=== PATIENT | male | born 1945 | race Caucasian/White ===

== ENCOUNTER 2018-07-29 10:10 | Inpatient (IN) ==
[2018-07-29] MEDS ORDERED: 0.9 % SODIUM CHLORIDE 1,000 ML IV ONE (10:18)
[2018-07-29 11:00] LABS: Mean Cell Volume 92.1 fL (80.0-100.0); Mean Corpuscular HGB Conc 33.5 g/dL (31.0-36.0); Mean Corpuscular Hemoglobin 30.9 pg (26.0-34.0); Platelet Count 218 K/mcL (140-440); RBC 4.05 M/mcL (4.50-5.90)
--- NOTE | 2018-07-29 11:03 | Emergency Department Note ---
Weakness HPI - General Chief complaint: Weakness Stated complaint: weakness, lower leg swelling Time Seen by Provider: 07/29/18 10:18 Source: patient, EMS Mode of arrival: EMS Limitations: no limitations - History of Present Illness HPI Narrative: 72-year-old male presents with significant pedal edema and pain to the feet bilaterally. States he can hardly walk or use his legs because his feet are so tender. Onset a week or 2 ago. Much worse over the last couple days. The right seems to be worse than the left although they are both painful and swollen. The right seems to be worse and red. Denies fever or chills at home. No nausea, vomiting, or diarrhea. No shortness of breath or palpitations. No chest pain. No cough or cold symptoms. Has never had anything like this previously. States he is not on any diuretics. States he just started seeing a new doctor at the [facility] and his last appointment was about 3 weeks ago. He did not have this problem at the time. Associated symptoms: Denies: chest pain, confusion, diaphoresis, fever/chills, loss of appetite, nausea/vomiting, shortness of breath, syncope - Related Data Home Medications Medication Instructions Recorded Confirmed Aspirin [Aspirin EC] 81 mg PO DAILY 07/29/18 07/29/18 Atorvastatin [Lipitor] 20 mg PO HS 07/29/18 07/29/18 Chlorthalidone [Hygroton] 12.5 mg PO DAILY 07/29/18 07/29/18 Lisinopril [Zestril] 20 mg PO DAILY 07/29/18 07/29/18 Omeprazole [PriLOSEC] 20 mg PO ACB 07/29/18 07/29/18 Tamsulosin [Flomax] 0.4 mg PO HS 07/29/18 07/29/18 Allergies Allergy/AdvReac Type Severity Reaction Status Date / Time No Known Drug Allergies Allergy Verified 07/29/18 10:13 Review of Systems All systems ED: reviewed and negative except as stated. Past Medical History - Past Medical History [facility] Narrative: Patient is extremely poor historian. States of his was here she can give us information but he cannot remember his past medical history and surgeries. However patient originally told me he is not on any diuretics but according to the med list he has been on a thiazide type diuretic. Medical history: Reports: GERD, hyperlipidemia, hypertension, other (prostate cancer 2018, fatty growth left arm) Surgical history ED: Reports: herniorrhaphy, orthopedic, other (low back surgeries, left ankle surgeries) - Social History smoking status: Never smoker Alcohol use: Reports: None Drug use: Reports: none Physical Exam Limitations: no limitations General appearance: alert, in no apparent distress Head: atraumatic, normocephalic, normal inspection Eye: Present: normal appearance. Absent: conjunctival injection ENT: mucous membranes moist Chest: Present: symmetric chest wall rise Respiratory: Present: normal lung sounds bilaterally. Absent: respiratory distress, rales/crackles, accessory muscle use Cardiovascular: Present: regular rate, normal heart sounds Extremities: Present: normal capillary refill. Absent: normal inspection (Feet with 2+ pedal edema bilaterally. The right is red and warm. The left is slightly warm but there is no redness. Diffuse tenderness throughout the right and left ankle and foot bilaterally. Sensation intact.) Neurological: Present: alert, oriented X3 Psychiatric: Present: normal affect, normal mood Skin: Present: warm, dry, intact, normal color Course Course Narrative: During the course of his visit here patient was hallucinating, thinking that he was flying. states this is unusual for him. At 1250 I did speak with the hospitalist, Dr. Shannon who agrees to accept the patient. Vital Signs Temperature 100.3 F H 07/29/18 10:10 Pulse Rate 100 H 07/29/18 10:10 Blood Pressure 101/78 07/29/18 10:10 Pulse Oximetry (%) 98 07/29/18 10:10 Temperature 100.8 F H 07/29/18 12:22 Pulse Rate 92 H 07/29/18 12:20 Respiratory Rate 20 07/29/18 12:20 Blood Pressure 114/67 07/29/18 12:20 Pulse Oximetry (%) 94 07/29/18 12:20 Weakness - Lab Data Lab results reviewed: Yes I reviewed the patient's lab results. Result diagrams: 07/29/18 10:27 07/29/18 10:27 Lab Results 07/29/18 07/29/18 07/29/18 Range/Units 10:19 10:19 10:27 WBC 12.2 H (4.5-11.0) K/mcL RBC 4.05 L (4.50-5.90) M/mcL Hgb 12.5 L (13.5-16.5) g/dL Hct 37.2 L (41.0-55.0) % MCV 92.1 (80.0-100.0) fL MCH 30.9 (26.0-34.0) pg MCHC 33.5 (31.0-36.0) g/dL RDW 13.0 (11.5-14.5) % Plt Count 218 (140-440) K/mcL MPV 8.6 (7.4-10.4) fL Total Counted 100 Seg Neutrophils % 75 (38-78) % Band Neutrophils % Not Reportable Lymphocytes % 15 (15-49) % Monocytes % (Manual) 9 (1-12) % Eosinophils % (Manual) 1 (0-7) % Platelet Estimate Normal (NORMAL) RBC Morphology Normal (NORMAL) ESR 87 H (0-15) mm/hr VBG Lactic Acid (0.5-2.0) mmol/L Sodium (133-145) mmol/L Potassium (3.3-5.1) mmol/L Chloride (96-108) mmol/L Carbon Dioxide (22-30) mmol/L Anion Gap (8-16) BUN (8-23) mg/dl Creatinine (0.7-1.2) mg/dl GFR Calculation Glucose (70-105) mg/dL Uric Acid 8.5 H (2.5-8.0) mg/dL Calcium (8.6-10.4) mg/dl Total Bilirubin (0.0-1.0) mg/dL AST (0-37) U/l ALT (0-40) U/l Alkaline Phosphatase (39-117) U/L C-Reactive Protein 17.6 H (0.0-0.8) mg/dl NT-Pro-B Natriuret Pep (0-125) pg/ml Total Protein (5.9-8.4) gm/dL Albumin (3.2-5.2) gm/dL Globulin (2.2-3.7) gm/dL Albumin/Globulin Ratio (1.0-2.3) 07/29/18 07/29/18 07/29/18 Range/Units 10:27 10:27 10:27 WBC (4.5-11.0) K/mcL RBC (4.50-5.90) M/mcL Hgb (13.5-16.5) g/dL Hct (41.0-55.0) % MCV (80.0-100.0) fL MCH (26.0-34.0) pg MCHC (31.0-36.0) g/dL RDW (11.5-14.5) % Plt Count (140-440) K/mcL MPV (7.4-10.4) fL Total Counted Seg Neutrophils % (38-78) % Band Neutrophils % Lymphocytes % (15-49) % Monocytes % (Manual) (1-12) % Eosinophils % (Manual) (0-7) % Platelet Estimate (NORMAL) RBC Morphology (NORMAL) ESR (0-15) mm/hr VBG Lactic Acid 1.1 (0.5-2.0) mmol/L Sodium 138 (133-145) mmol/L Potassium 3.9 (3.3-5.1) mmol/L Chloride 99 (96-108) mmol/L Carbon Dioxide 25 (22-30) mmol/L Anion Gap 14.0 (8-16) BUN 29 H (8-23) mg/dl Creatinine 2.0 H (0.7-1.2) mg/dl GFR Calculation 33 Glucose 124 H (70-105) mg/dL Uric Acid (2.5-8.0) mg/dL Calcium 9.0 (8.6-10.4) mg/dl Total Bilirubin 0.5 (0.0-1.0) mg/dL AST 9 (0-37) U/l ALT 13 (0-40) U/l Alkaline Phosphatase 89 (39-117) U/L C-Reactive Protein (0.0-0.8) mg/dl NT-Pro-B Natriuret Pep 439.1 H (0-125) pg/ml Total Protein 7.3 (5.9-8.4) gm/dL Albumin 3.5 (3.2-5.2) gm/dL Globulin 3.8 H (2.2-3.7) gm/dL Albumin/Globulin Ratio 0.9 L (1.0-2.3) - Radiology Data Radiology results reviewed: Yes I reviewed the patient's radiology results. Disposition Pt seen by CORN [facility]ILLER/PA only: No Clinical Impression: Cellulitis, Pedal edema, Foot pain, bilateral Disposition: Xfer As Inpt ([facility]) Condition: Fair Instructions: Cellulitis (ED) Referrals: Chencho Milner ARNP [Primary Care Provider] - Time of Disposition: 12:55
[2018-07-29 11:24] LABS: Eosinophils % (Manual) 1 % (0-7); Lymphocytes % 15 % (15-49); Monocytes % (Manual) 9 % (1-12); Platelet Estimate NORMAL (NORMAL); RBC Morphology NORMAL (NORMAL); Segmented Neutrophils % 75 % (38-78)
[2018-07-29 11:27] LABS: C-Reactive Protein 17.6 mg/dl (0.0-0.8); Uric Acid 8.5 mg/dL (2.5-8.0)
[2018-07-29 11:30] LABS: ALT/SGPT 13 U/l (0-40); Albumin 3.5 gm/dL (3.2-5.2); Albumin/Globulin Ratio 0.9 (1.0-2.3); Alkaline Phosphatase 89 U/L (39-117); Blood Urea Nitrogen 29 mg/dl (8-23)
--- NOTE | 2018-07-29 11:54 | XRay Report ---
CLINICAL INFORMATION: pain, swelling, redness, no injury COMPARISON: None. FINDINGS: 7 mm focal subcortical erosion of the talar neck noted on the oblique film. This is likely degenerative. Nonfusion of the posterior talar process - os trigonum noted. The ankle mortise, talocalcaneal joint and remaining visualized joints of the hindfoot are normal in width and alignment without arthritic change. There are two calcifications overlying the superior aspect of the calcaneal navicular joint - both less than 3 mm. They may represent loose bodies. Moderate diffuse soft tissue swelling is compatible the clinical diagnosis of cellulitis IMPRESSION: Moderate diffuse soft tissue swelling, more prominent medially, compatible the clinical diagnosis of cellulitis. 7 mm focal erosion of the distal talar neck seen on only one view. This is likely degenerative rather than due to osteomyelitis. If there is point tenderness in this specific area, suggest further evaluation with MRI. Other chronic findings as described Interpreted and Authenticated by: Montana Ward 07/29/18
[2018-07-29] MEDS ORDERED: cefTRIAXone 1 GM VIAL IV ONE (12:10)
[2018-07-29] MEDS: 0.9 % SODIUM CHLORIDE 1,000 ML IV SCH ×3 (12:32→17:13)
--- NOTE | 2018-07-29 12:51 | XRay Report ---
CLINICAL INFORMATION: fever COMPARISON: None. FINDINGS: Heart size, mediastinum and pulmonary vessels are unremarkable. COPD changes noted. No infiltrates or nodules. No effusions. IMPRESSION: COPD. No acute disease Interpreted and Authenticated by: Montana Ward 07/29/18
[2018-07-29] MEDS ORDERED: VANCOMYCIN PER PHARMACY IV SCH ×2 (13:08→15:15)
[2018-07-29 13:24] LABS: Appearance,Urine HAZY; Bacteria,Urine 0 /hpf (0); Bilirubin,Urine NEG (NEG); Color,Urine YELLOW; Glucose,Urine (UA) NEGATIVE (NEG); Leukocyte Esterase,Urine NEG /uL (NEG); Mucus,Urine FEW /hpf (0); Protein,Urine NEG (NEG); Specific Gravity,Urine 1.016 (1.000-1.035); Urine Blood NEG mg/dL (<0.03); Urine Hyaline Cast 1 /lpf (0-2); Urine RBC 1 /hpf (0-1); Urine Squamous Epithelial Cell < 1 /hpf (0-4); Urine WBC 2 /hpf (0-4); Urobilinogen,Urine NEG (NEG)
--- NOTE | 2018-07-29 13:24 | Emergency Department Note ---
ED Note Addendum Note Addendum: I saw this patient with Jory PURI. I agree with her evaluation management documentation.. In particular I see that his legs are relatively swollen he is febrile and there is concern for possible sepsis. Blood cultures were ordered before antibiotics given. Jory discussed the case with Dr. bruner who agreed to accept the patient for further care as an inpatient.
[2018-07-29] MEDS ORDERED: VANCOMYCIN 1,500 MG in 0.9 % SODIUM CHLORIDE 500 ML IV SCH ×2 (13:30→16:00)
[2018-07-29] MEDS ORDERED: 0.9 % SODIUM CHLORIDE 1,500 ML IV SCH ×2 (13:30→14:56)
[2018-07-29] MEDS ORDERED: cefTRIAXone 1 GM in DEXTROSE 5% IN WATER 50 ML IV SCH (13:30)
[2018-07-29] MEDS ORDERED: 0.9 % SODIUM CHLORIDE 1,000 ML IV SCH (13:30)
[2018-07-29] MEDS ORDERED: IPRATROPIUM/ALBUTEROL 3 ML AMPUL.NEB NEB PRN (13:30)
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
[2018-07-29] MEDS ORDERED: 0.9 % SODIUM CHLORIDE 10 ML SYRINGE IV SCH (14:00)
--- NOTE | 2018-07-29 17:14 | Magnetic Resonance Report ---
CLINICAL INFORMATION: Cellulitis - evaluate for osteomyelitis COMPARISON: Plain films 07/28/2018. TECHNIQUE: Axial T1 proton density T2, proton coronal proton density and sagittal T1 proton density images were acquired FINDINGS: A remote ununited fracture of the anterior process the calcaneus is also seen on plain film. There is no evidence of osteomyelitis throughout the ankle or foot. Severe hallux valgus, metatarsus abductus, moderate pes cavus deformities noted there are also hammertoe deformities in the second through fifth digits. Joint spaces are normal in width and alignment without arthritic change. There is a subtotal tear of the posterior tibialis tendon near the navicular insertion. Moderate fluid noted within the tendon sheath of flexor hallux longus and flexor digitorum longus in the plantar region. Remaining tendons and sheaths appear normal. There is diffuse increased signal in subcutaneous fat throughout the foot and ankle compatible with moderate cellulitis - no discrete abscess in the soft tissues. IMPRESSION: 1. No evidence of osteomyelitis 2. Moderate diffuse cellulitis of the foot and ankle 3. Subtotal tear of the posterior tibialis tendon near the navicular insertion. Fluid in the flexor hallux longus and flexor digitorum tendon sheath of the plantar region. 4. 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 5. Severe hallux valgus, metatarsus abductus, moderate pes cavus and also hammertoe deformity second through fifth digits Interpreted and Authenticated by: Montana Ward 07/29/18
[2018-07-29] MEDS: HYDROcodone/APAP 5/325MG TABLET PO PRN ×2 (17:45→21:34)
--- NOTE | 2018-07-29 17:54 | Ultrasound Report ---
CLINICAL INFORMATION: Bilateral leg swelling COMPARISON: None. FINDINGS: The entire deep venous system of both lower extremities including the common femoral, superficial femoral, popliteal and paired trifurcation calf veins are easily compressible and show normal venous blood flow on color and spectral Doppler. No evidence of thrombus IMPRESSION: Negative exam - no evidence of deep vein thrombosis in either lower extremity. Interpreted and Authenticated by: Montana Ward 07/29/18
[2018-07-29] MEDS: IPRATROPIUM/ALBUTEROL 3 ML AMPUL.NEB NEB PRN (18:02)
[2018-07-29] MEDS ORDERED: FAMOTIDINE 20 MG TABLET PO SCH (21:00)
[2018-07-29] MEDS ORDERED: HEPARIN 5,000 UNIT/ML VIAL SQ SCH (21:00)
[2018-07-29] MEDS ORDERED: TAMSULOSIN 0.4 MG CAPSULE PO SCH (21:00)
[2018-07-29] MEDS: TAMSULOSIN 0.4 MG CAPSULE PO SCH (21:34)
[2018-07-29] MEDS: FAMOTIDINE 20 MG TABLET PO SCH (21:34)
[2018-07-29] MEDS: HEPARIN 5,000 UNIT/ML VIAL SQ SCH (21:35)
[2018-07-29] MEDS: ATORVASTATIN 20 MG TABLET PO SCH (22:00)
[2018-07-29] MEDS: ASPIRIN 81 MG TAB.CHEW CHEWED SCH (22:00)
[2018-07-29] MEDS: 0.9 % SODIUM CHLORIDE 10 ML SYRINGE IV SCH (22:01)
[2018-07-30] MEDS ORDERED: ACETAMINOPHEN 1,000 MG/100 ML BOTTLE IV ONE (00:09)
[2018-07-30] MEDS: 0.9 % SODIUM CHLORIDE 1,000 ML IV SCH ×4 (01:06→20:13)
[2018-07-30] MEDS: PIPERACILLIN SODIUM/TAZOBACTAM 3.375 GM in DEXTROSE 5% IN WATER 50 ML IV SCH ×5 (01:06→22:59)
[2018-07-30] MEDS: HYDROcodone/APAP 5/325MG TABLET PO PRN (01:10)
[2018-07-30] MEDS: IPRATROPIUM/ALBUTEROL 3 ML AMPUL.NEB NEB PRN ×2 (04:19→09:58)
[2018-07-30] MEDS: 0.9 % SODIUM CHLORIDE 10 ML SYRINGE IV SCH ×3 (04:41→21:26)
[2018-07-30 07:03] LABS: Basophils # (Auto) 0 K/mcL (0.0-0.3); Basophils % (Auto) 0.4 % (0.0-2.0); Eosinophils # (Auto) 0.2 K/mcL (0.0-0.7); Eosinophils % (Auto) 1.8 % (0.0-7.0); Granulocytes % (Auto) 66.9 % (38.0-78.0); Lymphocytes # (Auto) 2.5 K/mcL (1.5-4.8); Lymphocytes % (Auto) 23.3 % (15.5-49.0); Mean Cell Volume 92.2 fL (80.0-100.0); Mean Corpuscular HGB Conc 33.1 g/dL (31.0-36.0); Mean Corpuscular Hemoglobin 30.5 pg (26.0-34.0); Monocytes # (Auto) 0.8 K/mcL (0.1-0.9); Monocytes % (Auto) 7.6 % (1.0-12.0); Platelet Count 209 K/mcL (140-440); RBC 3.87 M/mcL (4.50-5.90); Red Cell Distribution Width 13.1 % (11.5-14.5)
[2018-07-30] MEDS: ACETAMINOPHEN 650 MG/65 ML BOTTLE IV PRN ×3 (07:37→21:49)
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
[2018-07-30] MEDS ORDERED: cefTRIAXone 1 GM VIAL IV SCH ×2 (09:00)
[2018-07-30] MEDS ORDERED: ASPIRIN 81 MG TAB.CHEW PO SCH ×2 (09:00)
[2018-07-30] MEDS ORDERED: TIOTROPIUM BROMIDE 18 MCG INHALANT INH SCH (09:00)
[2018-07-30] MEDS: HEPARIN 5,000 UNIT/ML VIAL SQ SCH ×2 (09:06→21:42)
[2018-07-30] MEDS: VANCOMYCIN 1,500 MG in 0.9 % SODIUM CHLORIDE 500 ML IV SCH (09:11)
[2018-07-30 09:25] LABS: ALT/SGPT 10 U/l (0-40); Albumin 3.2 gm/dL (3.2-5.2); Albumin/Globulin Ratio 0.9 (1.0-2.3); Alkaline Phosphatase 78 U/L (39-117); Bilirubin,Direct 0.2 mg/dL (0.0-0.3); Blood Urea Nitrogen 29 mg/dl (8-23); Gamma Glutamyl Transpeptidase 34 U/L (8-61); Uric Acid 7.5 mg/dL (2.5-8.0)
[2018-07-30] MEDS ORDERED: PNEUMOCOCCAL 23-VAL P-SAC VAC 0.5 ML VIAL IM ONE (10:00)
[2018-07-30] MEDS ORDERED: methylPREDNISolone SOD SUCC 125 MG/2 ML VIAL IV ONE (10:05)
[2018-07-30] MEDS: Symbicort 160-4.5 Mcg Inhaler INH SCH ×2 (10:08→21:58)
[2018-07-30] MEDS: traMADol 50 MG TABLET PO PRN ×2 (11:29→21:47)
[2018-07-30] MEDS: IPRATROPIUM/ALBUTEROL 3 ML AMPUL.NEB NEB SCH ×2 (13:14→16:44)
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
[2018-07-30] MEDS: methylPREDNISolone SOD SUCC 40 MG/ML VIAL IV SCH ×2 (14:39→21:43)
[2018-07-30] MEDS ORDERED: IPRATROPIUM/ALBUTEROL 3 ML AMPUL.NEB NEB PRN (17:20)
[2018-07-30] MEDS: ATORVASTATIN 20 MG TABLET PO SCH (21:47)
[2018-07-30] MEDS: FAMOTIDINE 20 MG TABLET PO SCH (21:49)
[2018-07-30] MEDS: ASPIRIN 81 MG TAB.CHEW CHEWED SCH (21:49)
[2018-07-30] MEDS: TAMSULOSIN 0.4 MG CAPSULE PO SCH (21:49)
[2018-07-31] MEDS: IPRATROPIUM/ALBUTEROL 3 ML AMPUL.NEB NEB PRN (02:17)
[2018-07-31] MEDS: IPRATROPIUM/ALBUTEROL 3 ML AMPUL.NEB NEB SCH ×3 (05:39→21:15)
[2018-07-31] MEDS: 0.9 % SODIUM CHLORIDE 10 ML SYRINGE IV SCH ×3 (06:00→20:17)
[2018-07-31] MEDS: PIPERACILLIN SODIUM/TAZOBACTAM 3.375 GM in DEXTROSE 5% IN WATER 50 ML IV SCH ×3 (06:00→18:04)
[2018-07-31] MEDS: methylPREDNISolone SOD SUCC 40 MG/ML VIAL IV SCH ×3 (06:00→21:28)
[2018-07-31 06:47] LABS: Basophils # (Auto) 0 K/mcL (0.0-0.3); Basophils % (Auto) 0 % (0.0-2.0); Eosinophils # (Auto) 0 K/mcL (0.0-0.7); Eosinophils % (Auto) 0 % (0.0-7.0); Granulocytes % (Auto) 93.7 % (38.0-78.0); Lymphocytes # (Auto) 0.5 K/mcL (1.5-4.8); Lymphocytes % (Auto) 3.6 % (15.5-49.0); Mean Cell Volume 92.4 fL (80.0-100.0); Mean Corpuscular HGB Conc 32.8 g/dL (31.0-36.0); Mean Corpuscular Hemoglobin 30.3 pg (26.0-34.0); Monocytes # (Auto) 0.4 K/mcL (0.1-0.9); Monocytes % (Auto) 2.7 % (1.0-12.0); Platelet Count 227 K/mcL (140-440); RBC 3.74 M/mcL (4.50-5.90); Red Cell Distribution Width 13.3 % (11.5-14.5)
[2018-07-31 07:36] LABS: C-Reactive Protein 17.3 mg/dl (0.0-0.8)
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
[2018-07-31 07:38] LABS: ALT/SGPT 12 U/l (0-40); Albumin/Globulin Ratio 0.8 (1.0-2.3); Alkaline Phosphatase 76 U/L (39-117); Bilirubin,Direct < 0.2 mg/dL (0.0-0.3); Blood Urea Nitrogen 35 mg/dl (8-23); Gamma Glutamyl Transpeptidase 36 U/L (8-61); Uric Acid 6.7 mg/dL (2.5-8.0)
[2018-07-31] MEDS ORDERED: guaiFENesin 600 MG TAB.SR.12H PO ONE (08:33)
[2018-07-31] MEDS: VANCOMYCIN 1,500 MG in 0.9 % SODIUM CHLORIDE 500 ML IV SCH (08:43)
[2018-07-31] MEDS: Symbicort 160-4.5 Mcg Inhaler INH SCH ×2 (08:43→20:35)
[2018-07-31] MEDS: HEPARIN 5,000 UNIT/ML VIAL SQ SCH ×2 (08:44→20:15)
[2018-07-31] MEDS: HYDROcodone/APAP 5/325MG TABLET PO PRN ×3 (08:44→22:30)
[2018-07-31] MEDS: 0.9 % SODIUM CHLORIDE 1,000 ML IV SCH (09:20)
[2018-07-31] MEDS ORDERED: IPRATROPIUM/ALBUTEROL 3 ML AMPUL.NEB NEB SCH (13:00)
[2018-07-31] MEDS: traMADol 50 MG TABLET PO PRN (18:09)
[2018-07-31] MEDS ORDERED: ALBUMIN HUMAN 12.5 GM/50 ML BAG IV ONE (19:46)
[2018-07-31] MEDS ORDERED: FUROSEMIDE 40 MG/4 ML VIAL IV ONE ×2 (19:46→20:00)
[2018-07-31] MEDS ORDERED: LABETALOL HCL 20 MG/4 ML SYRINGE IV PRN (19:47)
[2018-07-31] MEDS ORDERED: ALBUMIN HUMAN 50 ML IV ONE (19:59)
[2018-07-31] MEDS: guaiFENesin 600 MG TAB.SR.12H PO SCH ×2 (20:07→20:35)
[2018-07-31] MEDS: TAMSULOSIN 0.4 MG CAPSULE PO SCH (20:15)
[2018-07-31] MEDS: ASPIRIN 81 MG TAB.CHEW CHEWED SCH (20:15)
[2018-07-31] MEDS: ATORVASTATIN 20 MG TABLET PO SCH (20:16)
[2018-07-31] MEDS: FAMOTIDINE 20 MG TABLET PO SCH (20:16)
[2018-08-01] MEDS: IPRATROPIUM/ALBUTEROL 3 ML AMPUL.NEB NEB SCH (05:42)
[2018-08-01] MEDS: 0.9 % SODIUM CHLORIDE 10 ML SYRINGE IV SCH ×3 (05:43→22:46)
[2018-08-01] MEDS: methylPREDNISolone SOD SUCC 40 MG/ML VIAL IV SCH ×3 (05:43→21:39)
[2018-08-01 05:48] LABS: Basophils # (Auto) 0 K/mcL (0.0-0.3); Basophils % (Auto) 0 % (0.0-2.0); Eosinophils # (Auto) 0 K/mcL (0.0-0.7); Eosinophils % (Auto) 0 % (0.0-7.0); Granulocytes % (Auto) 93.1 % (38.0-78.0); Lymphocytes # (Auto) 0.7 K/mcL (1.5-4.8); Lymphocytes % (Auto) 3.9 % (15.5-49.0); Mean Cell Volume 92.1 fL (80.0-100.0); Mean Corpuscular HGB Conc 33.2 g/dL (31.0-36.0); Mean Corpuscular Hemoglobin 30.5 pg (26.0-34.0); Monocytes # (Auto) 0.6 K/mcL (0.1-0.9); Platelet Count 256 K/mcL (140-440); RBC 3.61 M/mcL (4.50-5.90); Red Cell Distribution Width 12.9 % (11.5-14.5)
[2018-08-01 06:20] LABS: C-Reactive Protein 7.8 mg/dl (0.0-0.8)
[2018-08-01 06:23] LABS: ALT/SGPT 15 U/l (0-40); Albumin 3.1 gm/dL (3.2-5.2); Albumin/Globulin Ratio 0.9 (1.0-2.3); Alkaline Phosphatase 72 U/L (39-117); Bilirubin,Direct < 0.2 mg/dL (0.0-0.3); Blood Urea Nitrogen 34 mg/dl (8-23); Gamma Glutamyl Transpeptidase 37 U/L (8-61); Uric Acid 6.6 mg/dL (2.5-8.0)
[2018-08-01 06:42] LABS: Erythrocyte Sedimentation Rate 87 mm/hr (0-15)
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
[2018-08-01] MEDS ORDERED: ALBUMIN HUMAN 12.5 GM/50 ML BAG IV ONE (07:42)
[2018-08-01] MEDS ORDERED: FUROSEMIDE 40 MG/4 ML VIAL IV ONE ×2 (07:42→19:46)
[2018-08-01] MEDS ORDERED: IPRATROPIUM/ALBUTEROL 3 ML AMPUL.NEB NEB PRN (07:42)
[2018-08-01] MEDS: HYDROcodone/APAP 5/325MG TABLET PO PRN ×2 (08:23→16:07)
[2018-08-01] MEDS: guaiFENesin 600 MG TAB.SR.12H PO SCH ×2 (08:23→21:34)
[2018-08-01] MEDS: HEPARIN 5,000 UNIT/ML VIAL SQ SCH ×2 (08:23→21:39)
[2018-08-01] MEDS: Symbicort 160-4.5 Mcg Inhaler INH SCH ×2 (08:24→21:21)
[2018-08-01] MEDS ORDERED: CHLORTHALIDONE 25 MG TABLET PO SCH (09:00)
--- NOTE | 2018-08-01 10:11 | XRay Report ---
CLINICAL INFORMATION: Cough COMPARISON: 07/29/2018 FINDINGS: Heart size, mediastinum and pulmonary vessels are normal. Probable COPD noted. Minimal airspace disease in both medial bases is likely atelectasis. No effusion. IMPRESSION: Minor airspace disease in both medial bases - likely atelectasis Interpreted and Authenticated by: [place] Ward 08/01/18
[2018-08-01] MEDS ORDERED: ALBUTEROL SULFATE 1 PUFF INHALER INH PRN (10:38)
[2018-08-01] MEDS ORDERED: SUCRALFATE 1 GM/10 ML ORAL.SUSP PO ONE (10:51)
[2018-08-01] MEDS: PANTOPRAZOLE 40 MG TABLET PO SCH (11:16)
[2018-08-01] MEDS: ALBUTEROL SULFATE 2.5 MG/3 ML NEBULIZER NEB PRN ×2 (16:16→21:41)
[2018-08-01] MEDS: ATORVASTATIN 20 MG TABLET PO SCH (21:33)
[2018-08-01] MEDS: ASPIRIN 81 MG TAB.CHEW CHEWED SCH (21:34)
[2018-08-01] MEDS: TAMSULOSIN 0.4 MG CAPSULE PO SCH (21:35)
[2018-08-01] MEDS: ceFAZolin 1 GM VIAL IV SCH (22:45)
[2018-08-02] MEDS: ALBUTEROL SULFATE 2.5 MG/3 ML NEBULIZER NEB PRN (05:33)
[2018-08-02] MEDS: methylPREDNISolone SOD SUCC 40 MG/ML VIAL IV SCH (05:35)
[2018-08-02] MEDS: ceFAZolin 1 GM VIAL IV SCH ×3 (05:36→21:06)
[2018-08-02] MEDS: 0.9 % SODIUM CHLORIDE 10 ML SYRINGE IV SCH ×3 (05:37→21:31)
[2018-08-02 06:26] LABS: Basophils # (Auto) 0 K/mcL (0.0-0.3); Basophils % (Auto) 0 % (0.0-2.0); Eosinophils # (Auto) 0 K/mcL (0.0-0.7); Eosinophils % (Auto) 0 % (0.0-7.0); Granulocytes % (Auto) 88.6 % (38.0-78.0); Lymphocytes % (Auto) 6.5 % (15.5-49.0); Mean Cell Volume 92.2 fL (80.0-100.0); Mean Corpuscular Hemoglobin 30.5 pg (26.0-34.0); Monocytes # (Auto) 0.8 K/mcL (0.1-0.9); Monocytes % (Auto) 4.9 % (1.0-12.0); Platelet Count 281 K/mcL (140-440); Red Cell Distribution Width 13.6 % (11.5-14.5)
[2018-08-02 06:53] LABS: Blood Urea Nitrogen 37 mg/dl (8-23)
[2018-08-02] MEDS: PANTOPRAZOLE 40 MG TABLET PO SCH (07:06)
[2018-08-02] MEDS: TIOTROPIUM BROMIDE 18 MCG INHALANT INH SCH (08:55)
[2018-08-02] MEDS: Symbicort 160-4.5 Mcg Inhaler INH SCH ×2 (08:55→21:30)
[2018-08-02] MEDS: CHLORTHALIDONE 25 MG TABLET PO SCH (08:55)
[2018-08-02] MEDS: HEPARIN 5,000 UNIT/ML VIAL SQ SCH ×2 (08:57→21:06)
[2018-08-02] MEDS ORDERED: LABETALOL 5 MG/ML ML IV PRN (10:15)
[2018-08-02] MEDS ORDERED: guaiFENesin 600 MG TAB.SR.12H PO ONE (13:50)
[2018-08-02] MEDS: methylPREDNISolone SOD SUCC 125 MG/2 ML VIAL IV SCH ×2 (14:06→21:06)
[2018-08-02] MEDS: ALBUTEROL SULFATE 2.5 MG/3 ML NEBULIZER NEB SCH (18:00)
[2018-08-02] MEDS: ASPIRIN 81 MG TAB.CHEW CHEWED SCH (21:07)
[2018-08-02] MEDS: guaiFENesin 600 MG TAB.SR.12H PO SCH (21:07)
[2018-08-02] MEDS: TAMSULOSIN 0.4 MG CAPSULE PO SCH (21:07)
[2018-08-02] MEDS: ATORVASTATIN 20 MG TABLET PO SCH (21:07)
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
[2018-08-03] MEDS: ALBUTEROL SULFATE 2.5 MG/3 ML NEBULIZER NEB SCH ×2 (01:57→07:51)
[2018-08-03] MEDS: ceFAZolin 1 GM VIAL IV SCH (06:06)
[2018-08-03] MEDS: 0.9 % SODIUM CHLORIDE 10 ML SYRINGE IV SCH (06:06)
[2018-08-03] MEDS: methylPREDNISolone SOD SUCC 125 MG/2 ML VIAL IV SCH (06:06)
[2018-08-03 07:01] LABS: Basophils # (Auto) 0 K/mcL (0.0-0.3); Basophils % (Auto) 0 % (0.0-2.0); Eosinophils # (Auto) 0 K/mcL (0.0-0.7); Eosinophils % (Auto) 0 % (0.0-7.0); Granulocytes % (Auto) 89.9 % (38.0-78.0); Lymphocytes # (Auto) 0.8 K/mcL (1.5-4.8); Lymphocytes % (Auto) 5.7 % (15.5-49.0); Mean Corpuscular HGB Conc 33.2 g/dL (31.0-36.0); Mean Corpuscular Hemoglobin 30.5 pg (26.0-34.0); Monocytes # (Auto) 0.6 K/mcL (0.1-0.9); Monocytes % (Auto) 4.4 % (1.0-12.0); Platelet Count 287 K/mcL (140-440); RBC 3.82 M/mcL (4.50-5.90); Red Cell Distribution Width 13.5 % (11.5-14.5)
[2018-08-03 07:11] LABS: Blood Urea Nitrogen 36 mg/dl (8-23)
[2018-08-03] MEDS: guaiFENesin 600 MG TAB.SR.12H PO SCH (08:24)
[2018-08-03] MEDS: CHLORTHALIDONE 25 MG TABLET PO SCH (08:24)
[2018-08-03] MEDS: PANTOPRAZOLE 40 MG TABLET PO SCH (08:25)
[2018-08-03] MEDS: HEPARIN 5,000 UNIT/ML VIAL SQ SCH (08:26)
[2018-08-03] MEDS: Symbicort 160-4.5 Mcg Inhaler INH SCH (08:26)
[2018-08-03] MEDS: TIOTROPIUM BROMIDE 18 MCG INHALANT INH SCH (08:27)
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
== END 2018-08-03 12:30 | disposition home or self-care (01) | DRG 872 ==
LOC: ED 10:10 → MEDSUR 14:45
PROVIDERS: ADMIT Internal Medicine; ATTEND Internal Medicine
CPT/HCPCS: 84145; 97161; 99223; 99231; 90732; J0131; J0690; J0696; J1644; J1940; J2270; J2543; J2920; J2930; J3370; J7030; J7040; J7060; J7620; J7620-GY; P9047